=== PATIENT | male | born 1930 | race Caucasian/White ===

== ENCOUNTER 2016-06-27 11:46 | Emergency (ER) | payer OTHER ==
[~2016-06-27] VITALS: Ht 172.7 cm; Wt 59.3 kg
[~2016-06-27 11:46] MED LIST: ALLO100T PO; BUME1TAB PO; CEPH500C3 PO; METO50TA PO; PRAV10 PO; WARF2TAB PO
[2016-06-27 12:01] VITALS: BP 134/87; PULSE 77; RESP 16; TEMP 97.5; O2SAT 99
[2016-06-27] MEDS ORDERED: CALC0.25 PO (12:17)
[2016-06-27] MEDS ORDERED: ALLO100T PO (12:17)
[2016-06-27] MEDS ORDERED: JANT2.5T PO (12:17)
[2016-06-27] MEDS ORDERED: METO50TA PO (12:17)
[2016-06-27] MEDS ORDERED: BUME0.5T PO (12:17)
[2016-06-27] MEDS ORDERED: PRAV40TA2 PO (12:17)
--- NOTE | 2016-06-27 12:17 | PD ---
HPI Chief Complaint: Skin Problem Time Seen by Provider: 12:16 Travel History International Travel<30 days: No Contact w/Intl Traveler<30days: No Traveled to known affect area: No History of Present Illness HPI 86-year-old male presents to the ED for evaluation of laceration of right lower extremity. Patient states that 2 days ago he was attempting to push his pant leg down with the heel of his shoe when he tore the skin of his right anterior delong. The patient is on blood thinners and states that the wound has been bleeding "off and on" since then. Denies fever or chills, numbness, tingling, weakness, limitations to range of motion of the lower extremity. He's been treating at home by keeping the wound clean, dry and covered. Patient's daughter is at bedside states that she evaluated the wound this morning, removed the dressing which caused the wound to bleed again. She states she washed the area, applied a thin layer of antibiotic ointment and covered the wound before presentation today. Endorses tetanus immunization booster last year. PFSH Past Medical History Hx Anticoagulant Therapy: Yes AAA: Yes Atrial Fibrillation: Yes Blood Disorders: Yes Anxiety: No Depression: No Heart Rhythm Problems: Yes Cancer: No Cardiovascular Problems: Yes (htn on meds, pacemaker) High Cholesterol: Yes Chemotherapy: No Diabetes: Yes (type 2) Patient Takes Glucophage: No Diminished Hearing: No Endocrine: No Gastrointestinal Disorders: No Genitourinary: Yes (Renal disease stage 3) Hypertension: Yes Kidney Stones: Yes Musculoskeletal: Yes ((L) hip necrosis) Psychiatric: No Respiratory: No Radiation Therapy: No Past Surgical History Abdominal Aneurysm Repair: Yes (Repair ) AICD: No Appendectomy: Yes Arteriovenous Shunt: No Body Medical Devices: Pacemaker, hardware in hip Cardiac Surgery: Yes (Pacemaker) Insulin Pump: No Joint Replacement: No Pacemaker: No Tonsillectomy: Yes Other Surgery: Yes (Carotid) Social History Alcohol Use: Yes (Rarely) Tobacco Use: Yes (2 CIGS PER DAY) Substance Use: No Allergies-Medications (Allergen,Severity, Reaction): Coded Allergies: Iodinated Contrast Media (Verified Allergy, Severe, 06/27/16) Reported Meds & Prescriptions Reported Meds & Active Scripts Active Clindamycin (Clindamycin HCl) 300 Mg Cap 300 Mg PO Q6H 10 Days Reported Pravastatin 40 Mg Tab 40 Mg PO DAILY Jantoven (Warfarin) 2.5 Mg Tab 2.5 Mg PO DAILY Calcitriol 0.25 Mcg Cap 0.25 Mcg PO DAILY Allopurinol 100 Mg Tab 100 Mg PO DAILY Metoprolol Tartrate 50 Mg Tab 50 Mg PO DAILY Bumetanide 0.5 Mg Tab 0.5 Mg PO DAILY Review of Systems Except as stated in HPI: all other systems reviewed are Neg Physical Exam Narrative GENERAL: Well-nourished, well-developed elderly white male in no acute distress. SKIN: Warm and dry. There is a 4 cm curvilinear skin tear on the anterior aspect of the right lower delong. No active bleeding. 1 cm circumferential tenderness. Subcentimeter area of surrounding erythema. No discharge, warmth, cellulitic streaking. No popliteal LAD. HEAD: Normocephalic. EYES: No scleral icterus. No injection or drainage. NECK: Supple, trachea midline. No JVD or lymphadenopathy. CARDIOVASCULAR: Regular rate and rhythm without murmurs, gallops, or rubs. RESPIRATORY: Breath sounds equal bilaterally. No accessory muscle use. GASTROINTESTINAL: Abdomen soft, non-tender, nondistended. Active bowel sounds. MUSCULOSKELETAL: No cyanosis, or edema. Patient is noted to walk with a normal gait. BACK: Nontender without obvious deformity. No CVA tenderness. Data Data Last Documented VS Vital Signs Date Time Temp Pulse Resp B/P Pulse Ox O2 Delivery O2 Flow Rate FiO2 06/27/16 12:01 97.5 77 16 134/87 99 MDM Medical Decision Making Medical Screen Exam Complete: Yes Emergency Medical Condition: Yes Differential Diagnosis Laceration versus abrasion versus skin tear versus wound infection versus cellulitis versus other Narrative Course 86-year-old male with history of HTN, DM, CAD, pacemaker, on blood thinners presents to the ED for evaluation of laceration of the right lower extremity. Patient states he was attempting to push his pant leg down with the heel of his shoe when he tore the skin of his right anterior delong 2 days ago. Endorses bleeding "off and on" since then. Denies fever, chills, numbness, tingling, weakness, limitations to range of motion of the extremity. Spent treating at home keeping the wound clean, dry and covered. Endorses tetanus immunization booster last year. Vitals reviewed. Physical exam reveals a nontoxic appearing elderly white male in no acute distress. There is a 4 cm curvilinear skin tear on the anterior aspect of the right lower delong. No active bleeding. 1 cm circumferential tenderness. Subcentimeter area of surrounding erythema. No discharge, warmth, cellulitic streaking. No popliteal LAD. No limitations to range of motion of the ankle of the right leg. The wound was cleaned and a clean, dry, nonstick bandage was applied. Due to the patient's increased risk for wound infection he was prescribed clindamycin 300 mg 4 times a day 10 days. His daughter was given detailed wound instructions. She is instructed to keep the wound clean, dry, covered, administer all antibiotics as prescribed - even if symptoms resolve, follow up with the primary care provider. We discussed reasons to return to the ED. The patient and his daughter indicated understanding of the instructions that are amenable to the plan of care. This patient is stable and discharged home. Diagnosis Primary Impression: Skin tear of right lower leg without complication Qualified Code: S81.811A - Skin tear of right lower leg without complication, initial encounter Referrals: Primary Care Physician Patient Instructions: Acute Wound Care (ED), General Instructions, Skin Tear ( ED) Additional Instructions: Rest, hydrate. Keep wound clean, dry and covered. Change the dressing daily and anytime it becomes soiled or wet. You may shower normally. Do not submerge the wound. After bathing pat of wound dry. Allow the wound to air dry for 10-15 minutes. Apply a thin layer of antibiotic ointment and a clean, dry dressing. Take the antibiotics as they are prescribed, even if your symptoms resolved. Utilize [id number] pain medications, as described on the label, as needed. Follow-up with your primary care provider this week. Return to the ED for any urgent or emergent medical condition. Med/Other Pt SpecificInfo: Prescription(s) given Scripts Clindamycin 300 Mg [id number] Mg PO Q6H 10 Days Ref 0 Prov:Porsche Du MD 06/27/16 Disposition: 01 DISCHARGE HOME Condition: Stable Krystyna Sanchez Jun 27, 2016 12:17
[2016-06-27] MEDS ORDERED: CLIN1CAP6 PO (12:37)
== END 2016-06-27 12:48 | disposition home or self-care (01) ==
LOC: PHED 11:46 → PHEFT 12:48
DX: S81.821A Laceration with foreign body, right lower leg, initial encounter (principal); I48.91 Unspecified atrial fibrillation; I10 Essential (primary) hypertension; Z95.0 Presence of cardiac pacemaker; E78.00 Pure hypercholesterolemia, unspecified; E11.9 Type 2 diabetes mellitus without complications; F17.210 Nicotine dependence, cigarettes, uncomplicated; X58.XXXA Exposure to other specified factors, initial encounter; Y99.8 Other external cause status
CPT/HCPCS: 99282

== ENCOUNTER 2016-11-26 16:45 | Emergency (ER) | payer OTHER ==
[~2016-11-26 16:45] MED LIST changes: +BUME0.5T PO; -BUME1TAB PO; +CALC0.25 PO; -CEPH500C3 PO; +CLIN1CAP6 PO; +JANT2.5T PO; -PRAV10 PO; +PRAV40TA2 PO; -WARF2TAB PO
[2016-11-26 16:47] VITALS: BP 115/77; PULSE 78; RESP 20; TEMP 97.8; O2SAT 98
[2016-11-26] MEDS ORDERED: CART120C PO (17:39)
--- NOTE | 2016-11-26 17:41 | PD ---
HPI Chief Complaint: Skin Problem Time Seen by Provider: 17:05 Travel History International Travel<30 days: No Contact w/Intl Traveler<30days: No Traveled to known affect area: No History of Present Illness HPI 86-year-old male presents emergency department for evaluation of skin tear to the left lower extremity. The patient is anticoagulated. Patient reports he bumped into his walker which caused a skin tear 11 AM. He did not fall to the ground. He attempted to dress the wound himself but his daughter who is his part-time caregiver reports the wound continued to bleed throughout the day. She applied a topical granular clotting product to the wound and brought him into the emergency department for evaluation. Upon arrival the wound is not bleeding. Patient denies any pain. PFSH Past Medical History Hx Anticoagulant Therapy: Yes AAA: Yes Atrial Fibrillation: Yes Blood Disorders: Yes Anxiety: No Depression: No Heart Rhythm Problems: Yes Cancer: No Cardiovascular Problems: Yes (htn on meds, pacemaker) High Cholesterol: Yes Chemotherapy: No Diabetes: Yes (type 2) Diminished Hearing: No Endocrine: No Gastrointestinal Disorders: No Genitourinary: Yes (Renal disease stage 3) Hypertension: Yes Kidney Stones: Yes Musculoskeletal: Yes ((L) hip necrosis) Psychiatric: No Respiratory: No Radiation Therapy: No Past Surgical History Abdominal Aneurysm Repair: Yes (Repair ) AICD: No Appendectomy: Yes Arteriovenous Shunt: No Body Medical Devices: Pacemaker, hardware in hip Cardiac Surgery: Yes (Pacemaker) Insulin Pump: No Joint Replacement: No Pacemaker: No Tonsillectomy: Yes Other Surgery: Yes (Carotid) Social History Alcohol Use: Yes (Rarely) Tobacco Use: Yes (2 CIGS PER DAY) Substance Use: No Allergies-Medications (Allergen,Severity, Reaction): Coded Allergies: Iodinated Contrast Media (Verified Allergy, Severe, 11/26/16) Reported Meds & Prescriptions Reported Meds & Active Scripts Active Reported Cartia Xt (Diltiazem ER 24 HR) 120 Mg Caper 120 Mg PO DAILY Pravastatin 40 Mg Tab 40 Mg PO DAILY Jantoven (Warfarin) Unknown Strength Tab Unknown Dose PO DIRECTED Calcitriol 0.25 Mcg Cap 0.25 Mcg PO DAILY Allopurinol 100 Mg Tab 100 Mg PO DAILY Metoprolol Tartrate 50 Mg Tab 50 Mg PO DAILY Bumetanide 0.5 Mg Tab 0.5 Mg PO DAILY Review of Systems Except as stated in HPI: all other systems reviewed are Neg General / Constitutional: No: Fever Eyes: No: Visual changes HENT: No: Headaches Cardiovascular: No: Chest Pain or Discomfort Respiratory: No: Shortness of Breath Gastrointestinal: No: Abdominal Pain Genitourinary: No: Dysuria Physical Exam Narrative GENERAL: Well-nourished, well-developed patient. SKIN: Focused skin assessment warm/dry. 4 cm skin tear left lower extremity lateral aspect. There is no active bleeding. HEAD: Normocephalic. EYES: No scleral icterus. No injection or drainage. NECK: Supple, trachea midline. No JVD or lymphadenopathy. CARDIOVASCULAR: Regular rate and rhythm without murmurs, gallops, or rubs. RESPIRATORY: Breath sounds equal bilaterally. No accessory muscle use. GASTROINTESTINAL: Abdomen soft, non-tender, nondistended. MUSCULOSKELETAL: No cyanosis, or edema. Data Data Last Documented VS Vital Signs Date Time Temp Pulse Resp B/P Pulse Ox O2 Delivery O2 Flow Rate FiO2 11/26/16 17:31 16 11/26/16 16:47 97.8 78 115/77 98 Orders Dressing, Surg[place]ad Abd Ea (11/26/16 17:26) Gelatin 12 Mm/7 Mm Top (Gelfoam 12 Mm/7 (11/26/16 17:45) MDM Medical Decision Making Medical Screen Exam Complete: Yes Emergency Medical Condition: Yes Differential Diagnosis Skin tear, abrasion, contusion Narrative Course 86-year-old male presents emergency department for evaluation of the skin tear to his left lower 70. His daughters present. She reports that the wound continued to bleed throughout the day until she applied a granular clotting product. Once product was applied hemostasis was achieved. In the emergency department there is no active bleeding. The wound is skin tear and not able to be sutured. Wound care discussed. Sterile dressing applied. Patient agrees to follow up with his primary care doctor or return if he develops new or worsening symptoms. Diagnosis Primary Impression: Skin tear of left lower leg without complication Qualified Code: S81.812A - Skin tear of left lower leg without complication, initial encounter Referrals: Primary Care Physician Additional Instructions: Keep the dressing in place. Follow-up with your primary care doctor for recheck this week. Return to the emergency department if he developed new or worsening symptoms. Disposition: 01 DISCHARGE HOME Condition: Stable Aubree Dallas Nov 26, 2016 17:41
[2016-11-26] MEDS ORDERED: GELATIN 12 MM/7 MM FOAM TOPICAL ONE (17:45)
== END 2016-11-26 19:01 | disposition home or self-care (01) ==
LOC: PHED 16:45
DX: S81.812A Laceration without foreign body, left lower leg, initial encounter (principal); E11.9 Type 2 diabetes mellitus without complications; I10 Essential (primary) hypertension; E78.00 Pure hypercholesterolemia, unspecified; W22.8XXA Striking against or struck by other objects, initial encounter; Z72.0 Tobacco use; Z95.0 Presence of cardiac pacemaker; Z79.01 Long term (current) use of anticoagulants; Z86.79 Personal history of other diseases of the circulatory system; Z86.2 Personal history of diseases of the blood and blood-forming organs and certain disorders involving the immune mechanism; Z87.448 Personal history of other diseases of urinary system; Z87.39 Personal history of other diseases of the musculoskeletal system and connective tissue
CPT/HCPCS: 99282